=== PATIENT | male | born 1985 | race Caucasian/White ===

== ENCOUNTER 2023-11-10 09:53 | Emergency (ER) | payer SELFPAY ==
[2023-11-10] VITALS (32 sets, daily range): BP systolic 78–132; BP diastolic 50–94; PULSE 94–133; RESP 17–18; TEMP 36.6; O2SAT 94–100
--- NOTE | ~2023-11-10 | CT_ITS ---
CT abdomen pelvis w con Ordering provider: Olive Grace PA-C History: . large pilonidal? . Comparison: None. Technique: CT abdomen with IV and without oral contrast. Radiation reduction technique utilized. The dose-length product was 941.53 mGy-cm. 100 mL Omnipaque 350 was given IV. Findings: VISUALIZED LOWER CHEST: 3 mm nodule in the lingula. UPPER ABDOMINAL ORGANS: Liver: Normal. Gallbladder: Normal. Spleen: Normal. Stomach/duodenum: Normal. Pancreas: Normal. Adrenals: Normal. Kidneys: Stone in the right kidney upper pole measuring 1 cm. Stone in the right kidney lower pole me asuring 0.6 cm. Hypodensity in the left kidney upper pole medially most likely a cyst. Follow-up advi sed. VISUALIZED BOWEL AND MESENTERY: No evidence of diverticulitis. Normal appendix. The bowel is otherwis e normal. No free air or free fluid. No mesenteric lymphadenopathy. Mesenteric lymph node is seen moe suring 1.6 cm. RETROPERITONEUM: Normal aorta. No retroperitoneal lymphadenopathy. Left iliac lymphadenopathy is seen which measures 1.8 cm. MUSCULOSKELETAL: Fat stranding seen posteriorly in the pelvic subcutaneous area with an abscess which measures 3.2 x 1.6 x 10.5 cm. Grossly enlarged inguinal lymph nodes with the largest measuring 2.5 c m on the right side and 3.3 x 1.5 cm on the left side. Left fat-containing inguinal hernia. Otherwise , The superficial soft tissues are normal. Normal spine. IMPRESSION: Abscess in the subcutaneous tissues of the pelvic area posteriorly. Right renal stones. Lymphadenopathy in the inguinal areas and the left iliac vessels area. Reviewed, dictated and finalized at location A.
[2023-11-10 11:12] LABS: Basophils Absolute Auto 0.1 K/mm3 (0.0-0.1); Basophils Percent Auto 0.3 % (0.2-1.2); Hematocrit 40.8 % (42.0-52.0); Immature Granulocyte Absolute 0.12 K/mm3 (0.00-0.031); Immature Granulocyte Percent A 0.5 % (0-0.5); Lymphocytes Absolute Auto 2.38 K/mm3 (0.9-3.2); Lymphocytes Percent Auto 10.3 % (18.3-44.2); Mean Corpuscular HGB Conc 36.8 g/dl (32-36); Mean Corpuscular Hemoglobin 31.8 pg (26-34); Mean Corpuscular Volume 86.4 fl (80-100); Mean Platelet Volume 9.5 fl (7.4-10.4); Monocytes Absolute Auto 1.9 K/mm3 (0.1-0.6); Neutrophils Absolute Auto 18.7 K/mm3 (1.3-6.7); Neutrophils Percent Auto 80.9 % (45.5-73.1); Platelet Count Result 263 k/mm3 (150-375); Red Blood Count 4.72 M/mm3 (4.6-6.20); White Blood Count 23.2 K/mm3 (4.5-10.0)
--- NOTE | 2023-11-10 11:12 | ED.SKABFB ---
HPI - Skin/Abscess/Foreign Bdy General Chief complaint: Skin/Abscess/Foreign Body Stated complaint: tail bone cyst Time Seen by Provider: 11/10/23 10:02 Source: patient Mode of arrival: ambulatory Limitations: no limitations History of Present Illness HPI narrative: patient is a 38-year-old male who presents the ED with concern for a pilonidal cyst/ abscess. Patient reports history of recurrent pilonidal disease since he was 23 years old. States he is typically able to drain and manage them at home. 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 He reports symptoms have been worsening since Friday of last week. He does report chills/diaphoresis, denies known fevers. Related Data Allergies Allergy/AdvReac Type Severity Reaction Status Date / Time Penicillins Allergy Unknown Verified 11/10/23 10:03 Review of Systems Review of Systems: CONSTITUTIONAL: See HPI GASTROINTESTINAL: Denies abdominal pain, nausea, vomiting MUSCULOSKELETAL: See HPI. All systems reviewed & are unremarkable except as noted in HPI and below Exam Narrative: GENERAL: Well appearing, well-nourished, non-toxic, in no acute distress. HEAD: Normocephalic, atraumatic. RESPIRATORY: Airway patent, respirations nonlabored. Clear to auscultation bilaterally, no rales, rhonchi, wheezing. CARDIOVASCULAR: Tachycardic with regular rhythm without murmurs, rubs, or gallops. MUSCULOSKELETAL: Moves all extremities. No gross deformities. Superior gluteal cleft with induration, erythema, fissure, no palpable fluctuance. Large area of swelling, induration, ecchymosis superior to cleft throughout lumbar region. Scattered areas of fluctuance appreciated. Minimal tenderness. SKIN: Warm, dry, normal color. NEURO: A&O X3. Speech clear. Cranial nerves II-XII grossly intact. Steady gait. No ataxic movements. PSYCHIATRIC: Appropriate mood and affect. Normal interaction. Course Vital Signs Vital signs: Vital Signs Temperature 97.9 F 11/10/23 09:58 Pulse Rate 133 H 11/10/23 09:58 Respiratory Rate 18 11/10/23 09:58 Blood Pressure 129/94 H 11/10/23 09:58 Pulse Oximetry 99 11/10/23 09:58 Oxygen Delivery Room Air 11/10/23 09:58 Temperature 97.9 F 11/10/23 09:58 Pulse Rate 105 H 11/10/23 17:01 Respiratory Rate 17 11/10/23 11:20 Blood Pressure 110/67 11/10/23 17:01 Pulse Oximetry 97 11/10/23 17:01 Oxygen Delivery Room Air 11/10/23 09:58 MDM - Skin/Abscess/Foreign Bdy MDM Narrative Medical decision making narrative: Patient presented to ED with concern for recurrent pilonidal disease. Long history of pilonidal disease. Exam with large area of bruising, swelling, induration noted throughout lumbar region, seems to be higher than would be expected for pilonidal disease, potential tracking? given prolonged hx. Will obtain imaging to further evaluate. patient tachycardic upon arrival. Fluids initiated. CBC with white blood cell count 23.2. Neutrophil predominance. No bandemia. BMP unremarkable. Anion gap of 13. Fluids ongoing. Stable kidney function. Lactic acid within normal limits at 1.4. CT abdomen pelvis obtained and showing large subcutaneous abscess of the pelvic area, 3.2 x 1.6 x 10.5 cm. Personal review of images shows large amount of tracking/stranding. Patient did report that abscess began draining after CT scan, on re-evaluation, minimal purulent drainage to superior cleft noted. Wound cx was obtained. Given large abscess, prolonged history of recurrent pilonidal disease/scar tissue, concerned patient may need surgical drainage/surgical management of pilonidal cyst, potential joe drain. Will discuss with General surgery. Discussed case with Dr. Deutsch, gen surg, will have [employer] come to ED to see patient. Kendal in ED to see patient, performed I&D at bedside with significant amount of drainage. She rediscussed case with
[2023-11-10] MEDS: SODIUM CHLORIDE 0.9% IV 1,000 ML 999 ML IV CONT (11:19)
[2023-11-10 11:22] LABS: Lactic Acid Reflex 1.4 mmol/L (0.7-2.0)
[2023-11-10 11:23] LABS: Anion Gap 13 mmol/L (4-12); Blood Urea Nitrogen 13 mg/dL (9-20); Calcium 9.6 mg/dL (8.4-10.2); Carbon Dioxide 25 mmol/L (22-30); Chloride 99 mmol/L (98-107); Estimated CRCL calculation 76 ml/min; Estimated Glomerular Filt Rate > 60; Glucose 123 mg/dL (65-110); Potassium 3.8 mmol/L (3.4-5.0); Sodium 137 mmol/L (137-145)
[2023-11-10 11:29] LABS: Atypical Lymphocytes Present; Platelet Estimate Adequate (Adequate); Schistocytes None Seen
[2023-11-10] MEDS: VANCOMYCIN 1,250 MG/NS 250 ML 1,250 MG/250 ML BAG 166.67 MG IVPB (14:21)
--- NOTE | 2023-11-10 15:27 | PM.CNGS ---
Assessment and Plan Assessment and plan (1) Pilonidal abscess: Code(s): L05.01 - Pilonidal cyst with abscess Status: Acute Assessment and Plan: Patient with CT evidence of an abscess in the subcutaneous tissue of the posterior pelvic area and on exam consistent with a pilonidal abscess. This began spontaneously draining in the CT scan, but the opening is too small to pack and adequately drain the abscess. Discussed the option with the patient to proceed with bedside incision and drainage of pilonidal abscess with local anesthetic now. Description of the procedure, risks, benefits, alternatives, and expected wound care were discussed with the patient in detail. He agrees to proceed. Will gather supplies and proceed. Discussed this with Dr. Deutsch who agrees and is okay with patient being discharged home with oral antibiotics and pain medication with follow-up in our office in 1-2 weeks if he is feeling better and does not appear septic. Plan I have discussed the patient's case and plan of care with Dr. Deutsch. History of Present Illness Consult details Consult date: 11/10/23 Reason for consult: other (Pilonidal abscess) Requesting physician: Oliev Grace PA-C Narrative: This is a 38-year-old man who has a history of a pilonidal cyst since he was about 23 years old with multiple previous abscesses in the past that he has managed at home with warm compresses, sitz baths, and expressing the abscess. He denies ever having surgery to drain his abscesses or any excision in the past. He recently started using a hard chair at work and began to notice tenderness near his coccyx area about 5 days ago. The swelling and tenderness has progressively gotten worse over the past few days and he has tried warm compresses and sitz baths without relief. There has not been any drainage and he decided to come into the ER for evaluation. Labs showed a WBC count of 23,200 and he was tachycardic in the ER with a heart rate in the 130's. CT scan of the abdomen and pelvis showed a 3.2 x 1.6 x 10.5 cm abscess in the subcutaneous area of the posterior pelvis with lymphadenopathy in the inguinal areas and left iliac vessels area. Our service was consulted by the ED provider and he is now seen in the ER. He reports that he has had chills off and on the past few days but no reported fever. He also reports loss of appetite and noticing swelling in bilateral groin, which he typically has associated with the abscess. His appetite and swelling in his groin has seemed to improve. When he was down for the CT scan, the abscess began spontaneously draining and he already has relief. His heart rate is down to the 90's now in the ER. He was started on IV Vancomycin and given IV fluids. Review of Systems Review of Systems: All systems reviewed & are unremarkable except as noted in HPI and below Meds Home Medications and Allergies Allergies Allergy/AdvReac Type Severity Reaction Status Date / Time Penicillins Allergy Unknown Verified 11/10/23 10:03 Vital Signs Vital Signs - 24 hr 11/10/23 09:58 11/10/23 11:20 Temperature 97.9 F Pulse Rate 133 H 95 Respiratory Rate 18 17 Blood Pressure 129/94 H 102/64 Pulse Oximetry 99 96 Oxygen Delivery Room Air Exam Const: General: comfortable and no acute distress Nutritional Appearance: average body habitus Orientation/consciousness: patient oriented x3 HENMT: Head: normocephalic and atraumatic Ears: hearing grossly normal bilaterally Mouth: Yes moist mucous membranes Eyes: General: appearance normal, both eyes and all related structures Pupils: Equal, round and reactive pupils present Neck: Neck: normal visual inspection and full ROM Resp: Effort & Inspection: no respiratory distress Auscultation: clear to auscultation bilaterally Cardio: Rate: regular rate Rhythm: regular rhythm Heart sounds: S1 normal heart sound present and S2 normal heart sound present Peripheral pulses: Peripheral pulses 2+
[2023-11-10] MEDS: VANCOMYCIN 1,000 MG/NS 250 ML 1,000 MG/250 ML BAG 250 MG IVPB (16:05)
--- NOTE | 2023-11-10 16:14 | W.PM.PROC2 ---
Procedure Note - Detailed Date of Procedure 11/10/23 Pre-op Diagnosis Pilonidal abscess Post-op Diagnosis Same Procedure Performed Incision and drainage of large pilonidal abscess Surgeon MOR Gomes Anesthesia Local (Lidocaine 1% with epinephrine) Indications This is a 38-year-old man who presented to the ER today with complaints of an infected pilonidal cyst. CT of the abdomen and pelvis showed a large abscess in the subcutaneous tissues of the posterior pelvic area with bilateral inguinal lymphadenopathy. Patient was evaluated in the ED and decision was made to proceed with incision and drainage of the pilonidal abscess at the bedside with local anesthesia. Patient agreed to proceed. Findings Large pilonidal abscess measuring 14 x 5 x 3 cm Description of Procedure The patient was placed in the left lateral position on the ED stretcher. The site of the abscess for required I&D was identified. Following this, the area was prepped with chlorhexidine and draped in usual sterile fashion. Then, local anesthetic was infiltrated directly over the area of swelling and abscess formation where there was a tiny opening with purulent drainage at the superior aspect of the gluteal cleft. After allowing the local anesthetic to work, a 1 cm direct incision was made with an #11 blade scalpel over the fluctuant area of the abscess. Copious amounts of purulent drainage immediately flowed. All purulent drainage was expressed from the abscess. The abscess cavity was probed and all loculation broken up. The abscess tracked 9 cm superiorly and 4 cm inferiorly. The entire abscess cavity measured 14 x 5 x 2 cm. Following this, the area was packed with 1/4 inch iodoform Nu Gauze. The area was then covered with 4x4s and tape. The patient tolerated the procedure well. Estimated Blood Loss 0 Drains No Packing Yes Pathology None sent Complications No immediate complications Condition Stable Disposition No change
== END 2023-11-10 17:15 | disposition home or self-care (01) ==
PROVIDERS: Emergency Provider Physician Assistant
DX: L05.01 Pilonidal cyst with abscess (principal)
CPT/HCPCS: 10080; 36415; 74177; 80048; 83605; 85025; 87040; 87070; 87205; 96361; 96365; 96366; 99284; J3370; J7030; Q9967